=== PATIENT | male | born 2000 | race Asian ===

== ENCOUNTER 2019-09-11 13:01 | Emergency (ER) | payer SELFPAY ==
[~2019-09-11] VITALS: Ht 177.8 cm; Wt 79.5 kg
[2019-09-11] MEDS ORDERED: SODIUM CHLORIDE 0.65% 44 ML NASAL SPRAY NASAL ONE (15:45)
[2019-09-11] MEDS ORDERED: LORATADINE 10 MG TABLET PO ONE (15:45)
[2019-09-11] MEDS ORDERED: IBUPROFEN 400 MG TABLET PO ONE (15:45)
[2019-09-11 16:58] VITALS: BP 139/87
== END 2019-09-11 18:16 | disposition home or self-care (01) ==
LOC: EDSEX 13:03 → EMS 13:03
DX: J40 Bronchitis, not specified as acute or chronic (principal); J34.89 Other specified disorders of nose and nasal sinuses; F17.210 Nicotine dependence, cigarettes, uncomplicated
CPT/HCPCS: 99406

== ENCOUNTER 2020-10-08 20:20 | Emergency (ER) | payer OTHER ==
[~2020-10-08] VITALS: Ht 182.9 cm; Wt 83.0 kg
[2020-10-08 22:00] VITALS: BP 110/79
== END 2020-10-08 22:20 | disposition home or self-care (01) ==
LOC: EMS 20:22
DX: S60.221A Contusion of right hand, initial encounter (principal); L03.113 Cellulitis of right upper limb; M79.89 Other specified soft tissue disorders; F17.210 Nicotine dependence, cigarettes, uncomplicated; W22.01XA Walked into wall, initial encounter; Y93.89 Activity, other specified; Y92.89 Other specified places as the place of occurrence of the external cause; Y99.8 Other external cause status